=== PATIENT | male | born 1985 | race African-American/Black ===

== ENCOUNTER 2017-03-29 06:04 | Observation (INO) | payer SELFPAY ==
--- NOTE | 2017-03-29 06:32 | EDM.PDOC ---
ED HPI GENERAL MEDICAL PROBLEM - General Chief Complaint: Drug or Alcohol Abuse Stated Complaint: AMBULANCE Time Seen by Provider: 03/29/17 06:30 Source of Information: Reports: Patient - History of Present Illness INITIAL COMMENTS - FREE TEXT/NARRATIVE: HISTORY AND PHYSICAL: History of present illness: Patient presents via ambulance Patient is obviously intoxicated smells of alcohol prior to arrival he had told a taxi cab to pick him up he passed out after getting into the taxi, the sulky driver called for an ambulance to come and get him No review of systems is able to be obtained Review of systems: As per history of present illness and below otherwise all systems reviewed and negative. Past medical history: As per history of present illness and as reviewed below otherwise noncontributory. Surgical history: As per history of present illness and as reviewed below otherwise noncontributory. Social history: No reported history of drug or alcohol abuse. Family history: As per history of present illness and as reviewed below otherwise noncontributory. Physical exam: HEENT: Atraumatic, normocephalic, pupils reactive, negative for conjunctival pallor or scleral icterus, mucous membranes moist, throat clear, neck supple, nontender, trachea midline. Lungs: Clear to auscultation, breath sounds equal bilaterally, chest nontender. Heart: S1S2, regular, negative for clicks, rubs, or JVD. Abdomen: Soft, nondistended, nontender. Negative for masses or hepatosplenomegaly. Negative for costovertebral tenderness. Pelvis: Stable nontender. Genitourinary: Deferred. Rectal: Deferred. Extremities: Atraumatic, negative for cords or calf pain. Neurovascular unremarkable. Neuro: Patient is in a stupor, Glascow coma scale is 12 on arrival Diagnostics: []CBC, CMP, alcohol Therapeutics: []Patient signed out at shift change, and tried to contact Dr. Gonzalez for observation admission is patient is currently passed out however could not reach Carlos and was shift change I left sign out to Dr. Johnson for disposition and further management Impression: []Clinical Alcohol intoxication Definitive disposition and diagnosis as appropriate pending reevaluation and review of above. unable to assess Pain Score (Numeric/FACES): 0 - Related Data Allergies Allergy/AdvReac Type Severity Reaction Status Date / Time Unable to Assess Allergy Unverified 03/29/17 06:07 Social & Family History - Tobacco Use Smoking Status *Q: Current Status Unknown ED ROS GENERAL - Review of Systems Review Of Systems: ROS reveals no pertinent complaints other than HPI. ED EXAM, GENERAL - Physical Exam Exam: See Below Course - Vital Signs Last Recorded V/S: Last Vital Signs Temp 36.1 C 03/29/17 06:05 Pulse 76 03/29/17 06:05 Resp 18 03/29/17 06:05 BP 112/74 03/29/17 06:05 Pulse Ox 97 03/29/17 06:05 - Orders/Labs/Meds Labs: Laboratory Tests 03/29/17 03/29/17 Range/Units 06:19 06:19 WBC 5.56 (4.0-11.0) K/uL RBC 5.10 (4.50-5.90) M/uL Hgb 15.3 (13.0-17.0) g/dL Hct 44.4 (38.0-50.0) % MCV 87.1 (80.0-98.0) fL MCH 30.0 (27.0-32.0) pg MCHC 34.5 (31.0-37.0) g/dL RDW Std Deviation 43.1 (28.0-62.0) fl RDW Coeff of Jeffrey 14 (11.0-15.0) % Plt Count 202 (150-400) K/uL MPV 10.90 (7.40-12.00) fL Neut % (Auto) 32.7 L (48.0-80.0) % Lymph % (Auto) 59.9 H (16.0-40.0) % Orange % (Auto) 5.9 (0.0-15.0) % Eos % (Auto) 1.3 (0.0-7.0) % Baso % (Auto) 0.2 (0.0-1.5) % Neut # (Auto) 1.8 (1.4-5.7) K/uL Lymph # (Auto) 3.3 H (0.6-2.4) K/uL Orange # (Auto) 0.3 (0.0-0.8) K/uL Eos # (Auto) 0.1 (0.0-0.7) K/uL Baso # (Auto) 0.0 (0.0-0.1) K/uL Nucleated RBC % 0.0 /100WBC Nucleated RBCs # 0 K/uL Sodium 146 (136-146) mmol/L Potassium 3.6 (3.5-5.1) mmol/L Chloride 111 H (98-110) mmol/L Carbon Dioxide 24 (21-31) mmol/L BUN 9 (6.0-23.0) mg/dL Creatinine 0.9 (0.6-1.5) mg/dL Est Cr Clr Drug Dosing TNP Estimated GFR (MDRD) > 60.0 ml/min Glucose 96 (60-110) mg/dL Calcium 9.2 (8.8-10.8) mg/dL Total Bilirubin 0.2 (0.1-1.5) mg/dL AST 30 (5-40) IU/L ALT 41 (8-54) IU/L Alkaline Phosphatase 91 (40-150) Total Protein 8.7 H (6.0-8.0) g/dL Albumin 4.8 (3.5-5.0) g/dL Globulin 3.9 H (2.0-3.5) g/dL Albumin/Globulin Ratio 1.2 L (1.3-2.8) Ethyl Alcohol 312.3 mg/dL Departure - Departure Time of Disposition: 06:58 Disposition: Still A Patient 30 Condition: Fair Clinical Impression: Alcohol abuse - Discharge Information Forms: ED Department Discharge
[2017-03-29 06:53] LABS: CHLORIDE,CL 111 mmol/L (98-110); SODIUM,NA 146 mmol/L (136-146)
--- NOTE | 2017-03-29 09:11 | PCM.HP ---
H&P History of Present Illness - General Admit Problem/Dx: Admission Diagnosis/Problem Admission Diagnosis/Problem Alcohol intoxication - History of Present Illness Initial Comments - Free Text/Narative: 32 yo male who presented to the ED with alcohol intoxication. Taxi called EMS when patient passed out in cab. When I was in ED the the patient was asleep but was arousable to sternal rub. Once awake he was orientated and alert. He reports that he was drinking last night but did not take any other medications or drugs. He denies any history of diabetes, heart or lung disease. unable to assess Pain Score (Numeric/FACES): 0 - Related Data Allergies/Adverse Reactions: Allergies Allergy/AdvReac Type Severity Reaction Status Date / Time No Known Drug Allergies Allergy none Verified 03/29/17 09:39 Home Medications: Home Meds . [No Known Home Meds] 03/29/17 [History] Social & Family History - Tobacco Use Smoking Status *Q: Current Status Unknown H&P Review of Systems - Review of Systems: Review Of Systems: ROS reveals no pertinent complaints other than HPI. Exam - Exam Exam: See Below - Vital Signs Vital Signs: Last Vital Signs Temp 36.1 C 03/29/17 06:05 Pulse 76 03/29/17 06:05 Resp 18 03/29/17 06:05 BP 112/74 03/29/17 06:05 Pulse Ox 97 03/29/17 06:05 Weight: 80 kg - Exam General: Oriented, Lethargic Lungs: Clear to Auscultation, Normal Respiratory Effort Cardiovascular: Regular Rate, Regular Rhythm GI/Abdominal Exam: Normal Bowel Sounds, Soft, Non-Tender, No Organomegaly, No Distention, No Abnormal Bruit, No Mass, Pelvis Stable Extremities: Normal Inspection, Normal Range of Motion, Non-Tender, No Pedal Edema, Normal Capillary Refill Skin: Warm, Dry, Intact - Patient Data Result Diagrams: 03/29/17 06:19 03/29/17 06:19 *Q Meaningful Use (ADM) - VTE *Q VTE Criteria *Q: - Stroke *Q Stroke Criteria *Q: - AMI *Q AMI Criteria *Q: Problem List Initiated/Reviewed/Updated: Yes Orders Last 24hrs: Active Orders 24 hr Category Date Time Status Notify Provider Consults [RC] ASDIRECTED Care 03/29/17 07:53 Active Consult to Physician [CONS] Stat Cons 03/29/17 07:52 Active Assessment/Plan Comment:: 32 yo male admitted for acute alcohol intoxication. Will monitor until sober.
[2017-03-29] MEDS ORDERED: MVI, Adult with Vitamin K 10 ML, Thiamine 100 MG, Folic Acid 1 MG in Sodium Chloride 0.... IV ONE ×4 (09:30)
[2017-03-29 15:39] VITALS: BP 106/58
== END 2017-03-29 16:35 | disposition left against medical advice (07) ==
LOC: MW.ED 06:04 → MW.MS 07:06
PROVIDERS: ADMIT Internal Medicine; ATTEND Internal Medicine
DX: F10.129 Alcohol abuse with intoxication, unspecified (principal)
CPT/HCPCS: 36415; 80053; 85025; 99285; G0378; G0480; 99283